=== PATIENT | female | born 1950 | race Caucasian/White ===

== ENCOUNTER → 2016-07-04 | Outpatient (CLI) | payer OTHER ==
--- NOTE | 2016-07-04 15:36 | BD ---
EXAMINATION TYPE: MG DEXA axial skeleton. DATE OF EXAM: 07/04/2016 3:17 PM COMPARISON: NONE CLINICAL HISTORY: Postmenopausal female. Height: 61.5 IN Weight: 157 LBS FRAX RISK QUESTIONS: Alcohol (3 or more units per day): NO Family History (Parent hip fracture): NO Glucocorticoids (More than 3mos): NO (Ex: prednisone, prednisolone, methylprednisolone, dexamethasone, and hydrocortisone). History of Fracture in Adulthood: NO Secondary Osteoporosis: 1. Type 1 Diabetes: NO 2. Hyperthyroidism: NO 3. Menopause before 45: YES AGE 34 4. Malnutrition: NO 5. Chronic liver disease: NO Rheumatoid Arthritis: NO Current Tobacco Use: YES RISK FACTORS HISTORY OF: Surgery to Spine: YES When: 2009 Family History of Osteoporosis: MOTHER Smoke tobacco: YES Active: YES Diet low in dairy products/other sources of calcium: YES Postmenopausal woman: YES TOTAL HYST AGE 34 Take estrogen and/or progesterone medications: NOT NOW How long: AGE 34 - 49 MEDICATIONS: Additional Medications: WOMENS COMPLETE VIT, PANTOPRAZOLE, FLEXITONE, VALIUM, MELATONIN, ANXIETY MEDS ,TRAMADOL, EXAM MEASUREMENTS: Bone mineral densitometry was performed using the [employer]. PT HAD L-SPINE SURGERY IN 2009 Bone mineral density about the R hip (g/cm2): 0.836 Bone mineral density about the L hip (g/cm2): 0.858 T Score values are as follows: -----R Neck: -1.5 -----L Neck: -1.3 -----R Intertrochanter: -1.5 -----L Intertrochanter: -1.2 Bone mineral density BASELINE IMPRESSION: Osteopenia (T Score between -2.5 and -1 as noted by T score values in both hips. There is slightly increased risk of fracture and the patient may be considered for treatment. Re-Screen 1-2 years. NOTE: T-SCORE=SD OF THE YOUNG ADULT MEAN.
--- NOTE | 2016-07-05 12:12 | MM ---
Reason for exam: screening (asymptomatic). Last mammogram was performed 11 months ago. History: Patient is postmenopausal and history of other cancer. Family history of breast cancer in 2 maternal aunts. Pre-pectoral saline implants in both breasts, 1980. Took estrogen for 10 years beginning at age 34. Physical Findings: A clinical breast exam by your physician is recommended on an annual basis and results should be correlated with mammographic findings. MG Screening Mammo Implant/CAD Bilateral CC, MLO, and ID view(s) were taken. Prior study comparison: July 19, 2015, left breast MG 3d work up w/cad LT. July 07, 2015, bilateral MG screening mammo implant/CAD. The breast tissue is heterogeneously dense. This may lower the sensitivity of mammography. Bilateral breast prothesis. No significant changes when compared with prior studies. ASSESSMENT: Benign, BI-RAD 2 RECOMMENDATION: Routine screening mammogram of both breasts in 1 year.
== END | disposition home or self-care (01) ==
LOC: RADMAMWWP 13:08
PROVIDERS: ATTEND Internal Medicine
DX: Z12.31 Encounter for screening mammogram for malignant neoplasm of breast (principal); M85.852 Other specified disorders of bone density and structure, left thigh; M85.851 Other specified disorders of bone density and structure, right thigh
CPT/HCPCS: 77080; G0202

== ENCOUNTER → 2017-07-09 | Outpatient (CLI) | payer OTHER ==
--- NOTE | 2017-07-10 14:13 | MM ---
Reason for exam: screening (asymptomatic). Last mammogram was performed 1 year ago. History: Patient is postmenopausal and history of other cancer. Family history of breast cancer in 2 maternal aunts. Pre-pectoral saline implants in both breasts, 1979. Took estrogen for 10 years beginning at age 34. Physical Findings: A clinical breast exam by your physician is recommended on an annual basis and results should be correlated with mammographic findings. MG Screening Mammo Implant/CAD Bilateral CC and MLO view(s) were taken. Prior study comparison: July 04, 2016, bilateral MG screening mammo implant/CAD. July 19, 2015, left breast MG 3d work up w/cad LT. The breast tissue is heterogeneously dense. This may lower the sensitivity of mammography. No suspicious abnormality. No significant changes when compared with prior studies. ASSESSMENT: Negative, BI-RAD 1 RECOMMENDATION: Follow-up diagnostic mammogram of both breasts in 1 year.
== END | disposition home or self-care (01) ==
LOC: RADMAMWWP 13:51
PROVIDERS: ATTEND Internal Medicine
DX: Z12.31 Encounter for screening mammogram for malignant neoplasm of breast (principal)
CPT/HCPCS: 77067

== ENCOUNTER → 2018-07-10 | Outpatient (CLI) | payer OTHER ==
--- NOTE | 2018-07-12 10:24 | MM ---
Reason for exam: screening (asymptomatic). Last mammogram was performed 1 year ago. History: Patient is postmenopausal and has history of other cancer at age 34. Family history of breast cancer in 3 maternal aunts. Pre-pectoral saline implants in both breasts, 1980. Took estrogen for 10 years beginning at age 34. Physical Findings: A clinical breast exam by your physician is recommended on an annual basis and results should be correlated with mammographic findings. MG Screening Mammo Implant/CAD Bilateral CC, MLO, and ID view(s) were taken. Prior study comparison: July 09, 2017, bilateral MG screening mammo implant/CAD. July 04, 2016, bilateral MG screening mammo implant/CAD. There are scattered fibroglandular densities. Prepectoral saline implants. No significant changes when compared with prior studies. ASSESSMENT: Negative, BI-RAD 1 RECOMMENDATION: Routine screening mammogram of both breasts in 1 year.
== END ==
LOC: RADMAMWWP 12:41
PROVIDERS: ATTEND Internal Medicine
DX: Z12.31 Encounter for screening mammogram for malignant neoplasm of breast (principal)
CPT/HCPCS: 77067

== ENCOUNTER → 2020-06-25 | Outpatient (CLI) | payer OTHER ==
--- NOTE | 2020-06-29 10:28 | MM ---
Reason for exam: screening (asymptomatic). Last mammogram was performed 1 year and 11 months ago. History: Patient is postmenopausal and has history of other cancer at age 34. Family history of breast cancer in 3 maternal aunts. Pre-pectoral saline implants in both breasts, 1980. Took estrogen for 10 years beginning at age 34. Physical Findings: A clinical breast exam by your physician is recommended on an annual basis and results should be correlated with mammographic findings. MG Screening Mammo Implant/CAD Bilateral CC, MLO, and ID view(s) were taken. Prior study comparison: July 10, 2018, bilateral MG screening mammo implant/CAD. July 09, 2017, bilateral MG screening mammo implant/CAD. The breast tissue is heterogeneously dense. This may lower the sensitivity of mammography. Prepectoral saline implants. Central posterior right CC nodularity is unchanged. Medial anterior left CC asymmetric density is unchanged. No significant changes when compared with prior studies. ASSESSMENT: Benign, BI-RAD 2 RECOMMENDATION: Routine screening mammogram of both breasts in 1 year.
== END | disposition home or self-care (01) ==
LOC: RADMAMWWP 13:06
PROVIDERS: ATTEND Internal Medicine
DX: Z12.31 Encounter for screening mammogram for malignant neoplasm of breast (principal)
CPT/HCPCS: 77067

== ENCOUNTER → 2020-07-02 | Day surgery (SDC) | payer OTHER ==
[2020-06-30 15:22] VITALS: BMI 28.3
[~2020-07-02] MED LIST: LACTATED RINGERS 1,000 ML IV SCH; LIDOCAINE 1% (10MG/ML) FOR IV START INTRADERMA ONE; LIDOCAINE 1% INJ 10MG/ML (20 ML MDV) ONE; PROPOFOL 10 MG/ML 20 ML VIAL IV ONE
[2020-07-02 09:26] VITALS: TEMP 97.6
--- NOTE | 2020-07-02 10:21 | P.PCN ---
Date of Procedure: 07/02/20 Procedure(s) Performed: BRIEF HISTORY: Patient is a 70-year-old pleasant female scheduled for an elective colonoscopy as a part of screening for colorectal neoplasia. She has family history of colon cancer diagnosed in her mother, maternal grandmother and maternal uncle in his 60s and 70s respectively. Her last colonoscopy was 7 years ago. PROCEDURE PERFORMED: Colonoscopy with biopsy. PREOPERATIVE DIAGNOSIS: Screening for colon cancer/family history of colon cancer. IV sedation per Anesthesia. PROCEDURE: After informed consent was obtained, the patient, was brought into the endoscopy unit. IV sedation was administered by Anesthesia under continuous monitoring. Digital rectal examination was normal. Initially the Olympus CF-160 flexible video colonoscope was then inserted in the rectum, gradually advanced into the cecum without any difficulty. Careful examination was performed as the scope was gradually being withdrawn. Ileocecal valve and the appendiceal orifice were visualized and appeared normal. Prep was excellent. Mucosa of the cecum, ascending colon, transverse colon, descending colon, sigmoid colon, and rectum appeared normal. In the distal rectum there was a 5 mm polyp that was removed by cold biopsy. Scattered left-sided diverticulosis seen. Retroflexion was performed in the rectum and no lesions were seen. The patient tolerated the procedure well. IMPRESSION: 5 mm rectal polyp status post removal by cold biopsy Scattered sigmoid diverticulosis RECOMMENDATIONS: Findings of this examination were discussed with the patient as well as a family.. She was advised to follow with the biopsy results. If the biopsy shows an adenoma she can have a repeat colonoscopy in 5 years.
[2020-07-02 10:26] VITALS: RESP 17
[2020-07-02 10:38] VITALS: BP 98/62; PULSE 65
== END ==
LOC: ORWHC2ENDO 08:02
PROVIDERS: ATTEND Internal Medicine Gastroenterology
DX: Z12.11 Encounter for screening for malignant neoplasm of colon (principal); D12.8 Benign neoplasm of rectum; K57.30 Diverticulosis of large intestine without perforation or abscess without bleeding; Z80.0 Family history of malignant neoplasm of digestive organs; F17.210 Nicotine dependence, cigarettes, uncomplicated; Z88.1 Allergy status to other antibiotic agents; Z88.8 Allergy status to other drugs, medicaments and biological substances; Z79.899 Other long term (current) drug therapy
CPT/HCPCS: 88305; 45380; J2001; J2704

== ENCOUNTER → 2022-05-09 | Outpatient (CLI) | payer OTHER ==
--- NOTE | 2022-05-09 13:31 | MM ---
Reason for Exam: Hx of breast augmentation, asymptomatic. Last mammogram was performed 1 year(s) and 10 month(s) ago. Patient History: Menarche at age 17. First Full-Term at age 28. Left ovary removed at age 34. Right ovary removed at age 34. Hysterectomy at age 34. Postmenopausal. Other cancer, age 34. Estrogen for 10 years from age 34 until age 44. 1980, Bilateral Implants. Maternal aunt had breast cancer. Maternal aunt had breast cancer. Maternal aunt had breast cancer. Risk Values: Fannie 5 year model risk: 1.8%. NCI Lifetime model risk: 4.9%. Prior Study Comparison: 07/19/2015 Left Diagnostic Mammogram, [facility]. 07/04/2016 Bilateral Screening Mammogram, [facility]. 07/09/2017 Bilateral Screening Mammogram, [facility]. 07/10/2018 Bilateral Screening Mammogram, [facility]. 06/25/2020 Bilateral Screening Mammogram, [facility]. Tissue Density: The breast tissue is heterogeneously dense. This may lower the sensitivity of mammography. Findings: Analyzed By CAD. There is no suspicious group of microcalcifications or new suspicious mass in either breast. Prepectoral saline implants redemonstrated. Chronic nodularity within the right breast is unchanged. Asymmetry within the left breast is unchanged. No significant change from prior exams. Overall Assessment: Benign, BI-RAD 2 Management: Screening Mammogram of both breasts in 1 year. A clinical breast exam by your physician is recommended on an annual basis and results should be correlated with mammographic findings. Electronically signed and approved by: Aiden Chaney D.O.
== END | disposition home or self-care (01) ==
LOC: RADMAMWWP 10:40
PROVIDERS: ATTEND Internal Medicine
DX: Z12.31 Encounter for screening mammogram for malignant neoplasm of breast (principal); Z78.0 Asymptomatic menopausal state; Z80.3 Family history of malignant neoplasm of breast
CPT/HCPCS: 77067

== ENCOUNTER → 2023-08-25 | Outpatient (CLI) | payer MEDICARE, OTHER ==
--- NOTE | 2023-09-03 10:04 | MR ---
EXAMINATION TYPE: MR ankle RT wo con DATE OF EXAM: 08/25/2023 COMPARISON: No radiographic correlation available HISTORY: 73-year-old female S93.401D, Right ankle/foot pain S/P injury. TECHNIQUE: Multiplanar, multisequence images of the right ankle were obtained without IV contrast. FINDINGS: No acute or healing fracture. No suspicious bone marrow replacement. Moderate focal osteoarthritic change along the navicular medial cuneiform joint as well as the first TMT joint. Some additional mild reactive marrow edema at the Achilles tendon insertion. The insertion Achilles t endon is within adjacent soft tissue edema and a small deep sided tear of the middle third fibers jeri suring 6 x 4 mm. Tiny plantar heel spur. Origin of the plantar fascia is intact. Anterior extensor tendons and syndesmosis appears intact. Lateral ligamentous complex appears intact. Somewhat diminutive appearance to the inframalleolar peroneus longus for a span of 1.7 cm just below the level of the peroneal tubercle. No retracted tear. Medial flexor tendons appear intact. However, there is prominent tenosynovial fluid along the plantar aspect of the foot at the level of the knot of Mello. Deltoid spring ligament complex appears intact. Preserved fatty signal within the sinus Tarsi. Tarsal tunnel is clear. IMPRESSION: 1. 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 There is also a small, deep sided pa rtial-thickness tear of the middle third insertional fibers measuring 6 x 4 mm. 2. Moderate focal osteoarthritic change involving the navicular-medial cuneiform joint as well as the first TMT joint. 3. Suggestion of a partial thickness attritional tear spanning 1.7 cm of the inframalleolar peroneus longus just below the level of the peroneal tubercle. 4. Some prominent fluid along the plantar flexor tendons at the level of the knot of Mello may reflec t a nonspecific tenosynovitis.
== END | disposition home or self-care (01) ==
LOC: RADMRIMAIN 15:01
PROVIDERS: ATTEND Orthopaedic Surgery Hand Surgery
DX: M19.071 Primary osteoarthritis, right ankle and foot (principal); S93.401D Sprain of unspecified ligament of right ankle, subsequent encounter; S92.352D Displaced fracture of fifth metatarsal bone, left foot, subsequent encounter for fracture with routine healing; M25.572 Pain in left ankle and joints of left foot; M79.672 Pain in left foot; M67.873 Other specified disorders of tendon, right ankle and foot; M24.871 Other specific joint derangements of right ankle, not elsewhere classified; X58.XXXD Exposure to other specified factors, subsequent encounter

== ENCOUNTER → 2024-03-04 | Outpatient (CLI) | payer MEDICARE, OTHER ==
--- NOTE | 2024-03-06 08:53 | US ---
EXAMINATION TYPE: US abdomen comp/pelvis limited DATE OF EXAM: 03/04/2024 COMPARISON: NONE CLINICAL INDICATION: Female, 74 years old with history of R10.11 RUQ PAIN; RUQ pain x 8/[address] [place] Exposure to radioactive material and agent [place]. Former smoker. Complete hysterectomy . TECHNIQUE: Grayscale color Doppler imaging of the abdomen and pelvis. FINDINGS: EXAM MEASUREMENTS: Liver Length: 14.5 cm Gallbladder Wall: 0.2 cm CBD: 0.4 cm Spleen: 8.7 cm Right Kidney: 11.4 x 3.8 x 4.1 cm Left Kidney: 10.9 x 5.1 x 3.7 cm Post Void Residual: NA mL Patient not able to handle pressure while scanning bladder Pancreas: wnl Liver: Nodular and heterogenous Gallbladder: wnl CBD: wnl Spleen: wnl Right Kidney: wnl Left Kidney: wnl Upper IVC: wnl Abd Aorta: wnl Bladder: Limited visualization - WNL as visualized Bilateral Jets Seen Not able to assess Normal Post Void Residual (normal less than 50ml) NA IMPRESSION: Hepatocellular disease commonly relating to Hepatic steatosis. No suspicious masses. [facility], , 03/06/2024 8:51 AM
== END ==
LOC: RADUSWWP 07:14
PROVIDERS: ATTEND Internal Medicine
CPT/HCPCS: 76700; 76857

== ENCOUNTER → 2024-03-06 | Outpatient (CLI) | payer MEDICARE, OTHER ==
--- NOTE | 2024-03-06 17:00 | XR ---
EXAMINATION TYPE: XR chest 2V DATE OF EXAM: 03/06/2024 COMPARISON: None INDICATION: Pain under diaphragm TECHNIQUE: Frontal and lateral views of the chest are obtained. FINDINGS: The heart size is normal. The pulmonary vasculature is normal. The lungs are clear. No free air is evident. IMPRESSION: 1. No acute pulmonary process. [facility], Workstation: [facility], 03/06/2024 4:58 PM
== END ==
LOC: RADXRMAIN 15:07
PROVIDERS: ATTEND Internal Medicine
CPT/HCPCS: 71046

== ENCOUNTER → 2024-03-21 | Outpatient (CLI) | payer MEDICARE, OTHER ==
[2024-03-21 16:05] LABS: African American GFR (CKD) >90 (>60 ml/min/1.73 sqM); Anion Gap 6 mmol/L; Blood Urea Nitrogen 8 mg/dL (7-17); Calcium 9.2 mg/dL (8.4-10.2); Carbon Dioxide 27 mmol/L (22-30); Chloride 107 mmol/L (98-107); Glucose 91 mg/dL (74-99); Non-African American GFR(CKD) 89 (>60 ml/min/1.73 sqM); Potassium 3.9 mmol/L (3.5-5.1); Sodium 140 mmol/L (137-145)
--- NOTE | 2024-03-21 17:26 | CT ---
EXAMINATION TYPE: CT abdomen pelvis w con DATE OF EXAM: 03/21/2024 4:48 PM COMPARISON: None CLINICAL INDICATION: Female, 74 years old with history of R10.11 RIGHT UPPER QUADRANT PAIN; RUQ abdom inal pain. TECHNIQUE: Axial CT abdomen pelvis w con;Sagittal and coronal reformats were created on a separate w orkstation. Contrast used:100ml mL of Isovue 300 with IV Contrast, (none if empty) Oral contrast used: with Oral Contrast (none if empty) CT DLP: 1429.9 mGycm, Automated exposure control for dose reduction was used. FINDINGS: LOWER CHEST: Unremarkable ABDOMEN LIVER: Diffusely hypoattenuating parenchyma. GALLBLADDER AND BILE DUCTS: Gallbladder is within normal limits no evidence for cholelithiasis. PANCREAS: Unremarkable. SPLEEN: Unremarkable. ADRENAL GLANDS: Unremarkable. KIDNEYS AND URETERS: No evidence of hydronephrosis or renal calculus. The ureters are unremarkable. PELVIS BLADDER: No evidence for wall thickening or mass given limitations of exam. REPRODUCTIVE: Unremarkable. ABDOMEN & PELVIS STOMACH AND BOWEL: No evidence of bowel obstruction. Scattered colonic diverticula. PERITONEUM/RETROPERITONEUM: No evidence of pneumoperitoneum or free fluid. VASCULATURE: No evidence of aortic aneurysm. MUSCULOSKELETAL: No acute osseous abnormalities LYMPH NODES: No gross evidence for lymphadenopathy. SOFT TISSUE/ABDOMINAL WALL: Fat-containing umbilical hernia. IMPRESSION: 1. No evidence for acute right upper quadrant process to explain the patient's pain. 2. Hepatic steatosis. 3. Activity about hernia. 4. Colonic diverticulosis. [facility], , 03/21/2024 5:24 PM
== END | disposition home or self-care (01) ==
LOC: RADCTMAIN 14:45
DX: Z00.00 Encounter for general adult medical examination without abnormal findings (principal); K76.0 Fatty (change of) liver, not elsewhere classified; K57.30 Diverticulosis of large intestine without perforation or abscess without bleeding; K46.9 Unspecified abdominal hernia without obstruction or gangrene
CPT/HCPCS: 80048; 74177; 36415; Q9967